=== PATIENT | female | born 1935 | race Caucasian/White ===

== ENCOUNTER 2023-11-24 14:33 | Inpatient (IN) | payer MEDICARE, BC ==
[2023-11-24 16:54] VITALS: BMI 17.2
[2023-11-24] MEDS: Ketorolac Tromethamine 30 MG (1 mL) VIAL IVP SCH (18:24)
[2023-11-24] MEDS: traMADol HCl 50 MG TAB PO PRN (18:26)
[2023-11-24] MEDS: Acetaminophen 500 MG TAB PO PRN (18:27)
[2023-11-24] MEDS ORDERED: Ondansetron ODT 4 MG TAB PO PRN (18:48)
[2023-11-24] MEDS ORDERED: Bisacodyl 10 MG SUPP PR PRN (18:48)
[2023-11-24] MEDS ORDERED: Milk Of Magnesia 30 ML UDCUP PO PRN (18:48)
[2023-11-24] MEDS ORDERED: Fleet Saline Enema 133 ML BOT PR PRN (18:48)
[2023-11-24] MEDS ORDERED: Benzocaine/Menthol 1 LOZ LOZ PO PRN (18:48)
[2023-11-24] MEDS ORDERED: Ondansetron PF 4 MG/2 ML Vial IVP PRN (18:48)
[2023-11-24] MEDS ORDERED: Senokot S 8.6-50 MG TAB PO SCH (21:00)
[2023-11-24] MEDS: Ferrous Gluconate 324 MG TAB PO SCH (21:08)
[2023-11-25 06:16] LABS: #Basophils 0.03 10x3/uL (0.0-0.2); %Basophils 0.2 % (0.0-1.0); %Eosinophils 0.2 % (0.0-10.0); %Lymphocytes 5.6 % (21.0-51.0); %Monocytes 6.6 % (0.0-10.0); %Neutrophils 86.8 % (42.0-75.0); Hematocrit 35.9 % (36.0-47.0); Hemoglobin 11.1 g/dL (12.0-16.0); Mean Corpuscular HGB CONC 30.9 g/dL (32.0-36.0); Mean Corpuscular Hemoglobin 28.4 pg (27.0-31.0); Mean Corpuscular Volume 91.8 fL (78.0-98.0); Platelet Count 261 10x3/uL (130-400); RBC Distribution Width 14.7 % (11.5-14.5); Red Blood Cell (RBC) Count 3.91 mill/uL (4.20-5.40)
[2023-11-25 06:24] LABS: INR-International Normal Ratio 1.2; PTT 34.6 sec (22.9-36.1); Prothrombin Time 14.9 sec (12.0-14.7)
[2023-11-25 06:28] LABS: Anion Gap 12 mmol/L (10-20); BUN (Urea Nitrogen) 16 mg/dL (9.8-20.1); Calc. Creatinine Clearance 52 mL/min (70-130); Calcium 9.2 mg/dL (7.8-10.44); Carbon Dioxide 31 mmol/L (23-31); Chloride 96 mmol/L (98-107); Estimated GFR 86; Glucose 110 mg/dL (83-110); Potassium 3.9 mmol/L (3.5-5.1); Sodium 135 mmol/L (136-145)
[2023-11-25] MEDS: Multivitamin W/ Minerals 1 TAB PO SCH (07:45)
[2023-11-25] MEDS ORDERED: FLU (Fluad Triv) TS24-25 (65UP)/MF59C/PF 45 MCG/0.5 ML Syringe IM ONE (09:00)
[2023-11-25] MEDS: Amlodipine 5 MG TAB PO SCH (09:08)
[2023-11-25] MEDS: Timolol 0.5% Ophth Soln 5 ml Bottle EA EYE SCH (09:09)
[2023-11-25] MEDS: Escitalopram Oxalate 10 mg Tablet PO SCH (09:09)
[2023-11-25] MEDS: Lisinopril 20 MG TAB PO SCH (09:09)
[2023-11-25] MEDS: HYDROcodone/Acetaminophen 5/325 mg Tablet PO PRN (09:18)
[2023-11-25 10:57] VITALS: BMI 17.2
[2023-11-25] MEDS: Ipratropium/Albuterol 3 ML NEB NEB SCH (11:30)
[2023-11-25] MEDS ORDERED: PROPOFOL 20 ML ONE (12:50)
[2023-11-25] MEDS ORDERED: fentaNYL 50 mcg/mL 1 mL Vial ONE ×3 (12:50→13:39)
[2023-11-25] MEDS ORDERED: Lidocaine 1% PF 5 ML VIAL ONE (12:50)
[2023-11-25] MEDS ORDERED: Rocuronium Bromide 10 MG/ML (10ML VIAL) ONE (13:00)
[2023-11-25] MEDS ORDERED: ePHEDrine Sulfate 50 MG/10 ML VIAL ONE (13:04)
[2023-11-25] MEDS ORDERED: Ondansetron PF 4 MG/2 ML Vial ONE (13:14)
[2023-11-25] MEDS ORDERED: Promethazine HCl 25 MG/ML VIAL IM PRN (13:30)
[2023-11-25] MEDS ORDERED: Ondansetron HCl/PF 4 MG/2 ML Vial IVP PRN (13:30)
[2023-11-25] MEDS ORDERED: Promethazine HCl 25 MG/ML VIAL ONE (13:39)
[2023-11-25] MEDS: Mometasone 100 MCG HFA INHALER (RT USE) INH SCH (18:46)
[2023-11-25] MEDS: Latanoprost 0.005% Ophth Soln 2.5 ml Bottle EA EYE SCH (20:43)
[2023-11-26 05:36] LABS: #Basophils 0.03 10x3/uL (0.0-0.2); %Basophils 0.2 % (0.0-1.0); %Eosinophils 0.8 % (0.0-10.0); %Lymphocytes 4.9 % (21.0-51.0); %Neutrophils 88.6 % (42.0-75.0); Hematocrit 35.6 % (36.0-47.0); Mean Corpuscular HGB CONC 30.9 g/dL (32.0-36.0); Mean Corpuscular Hemoglobin 28.9 pg (27.0-31.0); Mean Corpuscular Volume 93.7 fL (78.0-98.0); Mean Platelet Volume 9.2 fL (7.4-10.4); Platelet Count 256 10x3/uL (130-400); RBC Distribution Width 14.7 % (11.5-14.5)
[2023-11-26 06:16] LABS: Anion Gap 12 mmol/L (10-20); Calc. Creatinine Clearance 51 mL/min (70-130); Calcium 9.1 mg/dL (7.8-10.44); Carbon Dioxide 31 mmol/L (23-31); Chloride 99 mmol/L (98-107); Estimated GFR 86; Glucose 86 mg/dL (83-110); Potassium 4.1 mmol/L (3.5-5.1); Sodium 138 mmol/L (136-145)
[2023-11-26 06:51] LABS: BUN (Urea Nitrogen) 15 mg/dL (9.8-20.1)
[2023-11-26] MEDS ORDERED: hydrALAZINE 20 MG/ML VIAL SLOW IVP PRN (07:59)
[2023-11-26] MEDS: Atorvastatin Calcium 40 MG TAB PO SCH (21:09)
[2023-11-27 05:09] LABS: #Basophils 0.03 10x3/uL (0.0-0.2); %Basophils 0.2 % (0.0-1.0); %Lymphocytes 6.1 % (21.0-51.0); %Monocytes 4.8 % (0.0-10.0); %Neutrophils 87.3 % (42.0-75.0); Hematocrit 34.1 % (36.0-47.0); Hemoglobin 10.8 g/dL (12.0-16.0); Mean Corpuscular HGB CONC 31.7 g/dL (32.0-36.0); Mean Corpuscular Hemoglobin 28.5 pg (27.0-31.0); Platelet Count 262 10x3/uL (130-400); RBC Distribution Width 14.6 % (11.5-14.5); Red Blood Cell (RBC) Count 3.79 mill/uL (4.20-5.40)
[2023-11-27 05:20] LABS: Anion Gap 11 mmol/L (10-20); BUN (Urea Nitrogen) 16 mg/dL (9.8-20.1); Calc. Creatinine Clearance 62 mL/min (70-130); Calcium 8.6 mg/dL (7.8-10.44); Carbon Dioxide 33 mmol/L (23-31); Chloride 97 mmol/L (98-107); Estimated GFR 90; Glucose 112 mg/dL (83-110); Potassium 3.7 mmol/L (3.5-5.1); Sodium 137 mmol/L (136-145)
[2023-11-27] MEDS: traMADol HCl 50 MG TAB PO PRN (10:20)
[2023-11-27] MEDS: Amlodipine 5 MG TAB PO SCH (10:22)
[2023-11-28 05:52] LABS: #Basophils Less than 0.03 10x3/uL (0.0-0.2); %Basophils 0.1 % (0.0-1.0); %Eosinophils 0.4 % (0.0-10.0); %Lymphocytes 8.6 % (21.0-51.0); %Monocytes 5.8 % (0.0-10.0); %Neutrophils 84.3 % (42.0-75.0); Hematocrit 33.3 % (36.0-47.0); Hemoglobin 10.4 g/dL (12.0-16.0); Mean Corpuscular HGB CONC 31.2 g/dL (32.0-36.0); Mean Corpuscular Hemoglobin 29.1 pg (27.0-31.0); Mean Corpuscular Volume 93.3 fL (78.0-98.0); Mean Platelet Volume 9.3 fL (7.4-10.4); Platelet Count 267 10x3/uL (130-400); RBC Distribution Width 14.6 % (11.5-14.5); Red Blood Cell (RBC) Count 3.57 mill/uL (4.20-5.40)
[2023-11-29 04:54] LABS: #Basophils 0.03 10x3/uL (0.0-0.2); %Basophils 0.2 % (0.0-1.0); %Eosinophils 0.3 % (0.0-10.0); %Lymphocytes 7.7 % (21.0-51.0); %Monocytes 6.1 % (0.0-10.0); %Neutrophils 84.7 % (42.0-75.0); Hematocrit 32.7 % (36.0-47.0); Hemoglobin 10.5 g/dL (12.0-16.0); Mean Corpuscular HGB CONC 32.1 g/dL (32.0-36.0); Mean Corpuscular Hemoglobin 28.8 pg (27.0-31.0); Mean Corpuscular Volume 89.8 fL (78.0-98.0); Mean Platelet Volume 9.1 fL (7.4-10.4); Platelet Count 267 10x3/uL (130-400); RBC Distribution Width 14.6 % (11.5-14.5); Red Blood Cell (RBC) Count 3.64 mill/uL (4.20-5.40)
[2023-11-29 05:22] LABS: Anion Gap 11 mmol/L (10-20); BUN (Urea Nitrogen) 11 mg/dL (9.8-20.1); Calc. Creatinine Clearance 55 mL/min (70-130); Calcium 8.5 mg/dL (7.8-10.44); Carbon Dioxide 30 mmol/L (23-31); Chloride 93 mmol/L (98-107); Estimated GFR 87; Glucose 139 mg/dL (83-110); Potassium 3.4 mmol/L (3.5-5.1); Sodium 131 mmol/L (136-145)
[2023-11-29] MEDS: Ketorolac Tromethamine 30 MG (1 mL) VIAL IVP PRN (17:22)
[2023-11-29] MEDS: Morphine 2 MG/ML VIAL SLOW IVP PRN (21:22)
[2023-11-30 05:28] LABS: #Basophils 0.03 10x3/uL (0.0-0.2); %Basophils 0.2 % (0.0-1.0); %Eosinophils 0.3 % (0.0-10.0); %Lymphocytes 4.1 % (21.0-51.0); %Neutrophils 89.6 % (42.0-75.0); Hematocrit 33.1 % (36.0-47.0); Hemoglobin 10.9 g/dL (12.0-16.0); Mean Corpuscular HGB CONC 32.9 g/dL (32.0-36.0); Mean Corpuscular Hemoglobin 28.9 pg (27.0-31.0); Mean Corpuscular Volume 87.8 fL (78.0-98.0); Platelet Count 267 10x3/uL (130-400); RBC Distribution Width 14.5 % (11.5-14.5); Red Blood Cell (RBC) Count 3.77 mill/uL (4.20-5.40)
[2023-11-30 05:47] LABS: Anion Gap 11 mmol/L (10-20); BUN (Urea Nitrogen) 14 mg/dL (9.8-20.1); Calc. Creatinine Clearance 64 mL/min (70-130); Calcium 8.8 mg/dL (7.8-10.44); Carbon Dioxide 31 mmol/L (23-31); Chloride 92 mmol/L (98-107); Estimated GFR 90; Glucose 103 mg/dL (83-110); Potassium 3.4 mmol/L (3.5-5.1); Sodium 131 mmol/L (136-145)
[2023-11-30] MEDS: Potassium Chloride 20 MEQ TAB PO SCH (11:38)
[2023-11-30] MEDS: Senokot S 8.6-50 MG TAB PO PRN (11:47)
[2023-11-30] MEDS ORDERED: Senokot S 8.6-50 MG TAB PO SCH (12:15)
[2023-11-30 12:40] LABS: Magnesium 1.5 mg/dL (1.6-2.6)
[2023-11-30] MEDS: Bisacodyl 5 MG TAB PO SCH (13:54)
[2023-12-01 09:02] LABS: Actual Bicarbonate (HCO3v) 33.6 mEq/L (22-28); Base Excess 7.4 mEq/L (-2.0 to +3.0); Calcium, Ionized (venous) 1.15 mmol/L (1.16-1.32); Chloride (VBG) 93 mmol/L (98-106); Hematocrit-VBG 38 % (36.0-47.0); Hemoglobin (Hb) 12.8 g/dL (11.7-16.1); Potassium (VBG) 3.42 mmol/L (3.70-5.30); pH (venous) 7.412 (7.32-7.43)
[2023-12-01 09:03] LABS: #Basophils 0.03 10x3/uL (0.0-0.2); %Basophils 0.2 % (0.0-1.0); %Eosinophils 0.2 % (0.0-10.0); %Lymphocytes 5.9 % (21.0-51.0); %Monocytes 5.8 % (0.0-10.0); Mean Corpuscular HGB CONC 32.4 g/dL (32.0-36.0); Mean Corpuscular Hemoglobin 28.8 pg (27.0-31.0); Mean Corpuscular Volume 88.9 fL (78.0-98.0); Mean Platelet Volume 9.4 fL (7.4-10.4); Platelet Count 296 10x3/uL (130-400); RBC Distribution Width 14.7 % (11.5-14.5); Red Blood Cell (RBC) Count 4.16 mill/uL (4.20-5.40)
[2023-12-01 09:22] LABS: Anion Gap 13 mmol/L (10-20); BUN (Urea Nitrogen) 15 mg/dL (9.8-20.1); Calc. Creatinine Clearance 54 mL/min (70-130); Carbon Dioxide 31 mmol/L (23-31); Chloride 93 mmol/L (98-107); Estimated GFR 87; Glucose 101 mg/dL (83-110); Potassium 3.5 mmol/L (3.5-5.1); Sodium 133 mmol/L (136-145)
[2023-12-01] MEDS: Magnesium 2 GM/50 ML(in water) 2 GM in Premix 1 BAG IVPB SCH (15:56)
[2023-12-02 05:43] LABS: #Basophils Less than 0.03 10x3/uL (0.0-0.2); %Basophils 0.2 % (0.0-1.0); %Eosinophils 0.2 % (0.0-10.0); %Lymphocytes 7.3 % (21.0-51.0); %Monocytes 6.3 % (0.0-10.0); %Neutrophils 85.1 % (42.0-75.0); Hematocrit 35.5 % (36.0-47.0); Hemoglobin 11.4 g/dL (12.0-16.0); Mean Corpuscular HGB CONC 32.1 g/dL (32.0-36.0); Mean Corpuscular Hemoglobin 28.6 pg (27.0-31.0); Mean Corpuscular Volume 89.2 fL (78.0-98.0); Mean Platelet Volume 9.1 fL (7.4-10.4); Platelet Count 281 10x3/uL (130-400); RBC Distribution Width 14.7 % (11.5-14.5); Red Blood Cell (RBC) Count 3.98 mill/uL (4.20-5.40)
[2023-12-02 06:27] LABS: Anion Gap 14 mmol/L (10-20); BUN (Urea Nitrogen) 19 mg/dL (9.8-20.1); Calc. Creatinine Clearance 58 mL/min (70-130); Calcium 8.7 mg/dL (7.8-10.44); Carbon Dioxide 26 mmol/L (23-31); Chloride 96 mmol/L (98-107); Estimated GFR 88; Glucose 102 mg/dL (83-110); Potassium 3.8 mmol/L (3.5-5.1); Sodium 132 mmol/L (136-145)
[2023-12-02 17:57] VITALS: TEMP 97.9
[2023-12-02 19:45] VITALS: BP 112/60
== END 2023-12-02 19:42 | DRG 560 ==
LOC: SURG B 15:59 → OBSVTOIN 18:48
PROVIDERS: ADMIT Orthopaedic Surgery; ATTEND Orthopaedic Surgery
PROC: 0SS9XZZ Reposition Right Hip Joint, External Approach (ICD-10-PCS; principal; 2023-11-25)
DX: T84.020A Dislocation of internal right hip prosthesis, initial encounter (principal); E44.0 Moderate protein-calorie malnutrition; Z68.1 Body mass index [BMI] 19.9 or less, adult; K56.7 Ileus, unspecified; E87.1 Hypo-osmolality and hyponatremia; Y83.8 Other surgical procedures as the cause of abnormal reaction of the patient, or of later complication, without mention of misadventure at the time of the procedure; Y79.2 Prosthetic and other implants, materials and accessory orthopedic devices associated with adverse incidents; I10 Essential (primary) hypertension; E78.5 Hyperlipidemia, unspecified; W06.XXXA Fall from bed, initial encounter; I73.9 Peripheral vascular disease, unspecified; K59.00 Constipation, unspecified; Z90.710 Acquired absence of both cervix and uterus; Z91.040 Latex allergy status; Z91.048 Other nonmedicinal substance allergy status; Z88.0 Allergy status to penicillin; Z85.3 Personal history of malignant neoplasm of breast; Y93.89 Activity, other specified; Y92.098 Other place in other non-institutional residence as the place of occurrence of the external cause; D72.829 Elevated white blood cell count, unspecified; D63.8 Anemia in other chronic diseases classified elsewhere; E87.6 Hypokalemia
CPT/HCPCS: 36415; 72170; 80048; 82805; 83735; 85025; 85610; 85730; 93923; 94640; 94664; 97139; J1885; J2272; J2405; J2550; J2704; J3010; J3475; J7620